=== PATIENT | male | born 1980 | race Caucasian/White ===

== ENCOUNTER → 2020-01-10 | Outpatient (CLI) | payer SELFPAY | END | disposition home or self-care (01) | LOC: LABWHC1 11:19 | PROVIDERS: ATTEND Emergency Medicine | DX: Z20.828 Contact with and (suspected) exposure to other viral communicable diseases (principal) | CPT/HCPCS: U0003; C9803 ==

== ENCOUNTER → 2020-02-11 | Outpatient (CLI) | payer SELFPAY | END | disposition home or self-care (01) | LOC: LABWHC1 16:40 | PROVIDERS: ATTEND Emergency Medicine | DX: Z20.828 Contact with and (suspected) exposure to other viral communicable diseases (principal) | CPT/HCPCS: U0003; C9803 ==

== ENCOUNTER 2021-04-21 06:13 | Day surgery (SDC) | payer BC ==
[2021-04-20 10:11] VITALS: BMI 38.0
[~2021-04-21 06:13] MED LIST: ACETAMINOPHEN TAB 500 MG TAB PO PRN; HEPARIN SODIUM,PORCINE/PF 5,000 UNIT/0.5 ML SYRINGE SQ PRN; ceFAZolin 3 GM in SODIUM CHLORIDE 0.9% 100 ML IVPB PRN
[2021-04-21 07:11] VITALS: TEMP 98
[2021-04-21] MEDS ORDERED: LACTATED RINGERS 1,000 ML IV ONE ×2 (07:20→10:53)
[2021-04-21 07:24] LABS: Glucose,Whole Blood 100 mg/dL (75-99)
[2021-04-21] MEDS ORDERED: ONDANSETRON 4 MG/2 ML VIAL IVP ONE (07:31)
[2021-04-21] MEDS ORDERED: DEXAMETHASONE SOD PHOSPHATE 4 MG/ML 1 ML VIAL IVP ONE (07:43)
[2021-04-21] MEDS ORDERED: MIDAZOLAM 2 MG/2 ML VIAL IVP ONE (07:52)
[2021-04-21] MEDS ORDERED: fentaNYL (PF) 50 MCG/ML 2 ML AMP IVP ONE (07:53)
[2021-04-21] MEDS ORDERED: fentaNYL (PF) 50 MCG/ML 2 ML AMP ONE (08:24)
[2021-04-21] MEDS ORDERED: NEOSTIGMINE 1 MG/ML 10 ML VIAL ONE (08:24)
[2021-04-21] MEDS ORDERED: ROCURONIUM 10 MG/ML (5 ML VIAL) IV ONE (08:24)
[2021-04-21] MEDS ORDERED: KETOROLAC 15 MG/ML 1 ML VIAL ONE (08:24)
[2021-04-21] MEDS ORDERED: ROPIVACAINE 5 MG/ML 30 ML VIAL ONE (08:24)
[2021-04-21] MEDS ORDERED: GLYCOPYRROLATE 0.2 MG/ML 2 ML VIAL ONE (08:24)
[2021-04-21] MEDS ORDERED: PROPOFOL 10 MG/ML 20 ML VIAL IV ONE (08:24)
[2021-04-21] MEDS ORDERED: DEXAMETHASONE SOD PHOSPHATE 10 MG/ML 1 ML VIAL ONE (08:24)
[2021-04-21] MEDS ORDERED: SODIUM CHLORIDE 0.9% (PF) 10 ML VIAL ONE (08:24)
[2021-04-21] MEDS ORDERED: SUCCINYLCHOLINE CHLORIDE 100 MG/5 ML SYR IV ONE (08:24)
[2021-04-21] MEDS ORDERED: LIDOCAINE 1% INJ 10MG/ML (20 ML MDV) ONE (08:24)
[2021-04-21] MEDS ORDERED: MIDAZOLAM 2 MG/2 ML VIAL ONE (08:24)
[2021-04-21] MEDS ORDERED: KETAMINE 10 MG/ML 20 ML VIAL ONE (08:24)
[2021-04-21] MEDS ORDERED: BUPIVACAINE (PF) 0.25% 30 ML VIAL SQ ONE (08:55)
--- NOTE | 2021-04-21 08:59 | P.ANPRN ---
Procedure Note - Anesthesia - Nerve Block Performed Bilateral Erector Spinae Single Time Out Performed: Yes Date of Procedure: 04/21/21 Procedure Start Time: 07:52 Procedure Stop Time: 07:59 Location of Patient: PreOp Indication: Requested by Surgeon Specifically requested for management of pain by DrSerenity: Mannie Soto Sedation Type: Sedate with meaningful contact maintained Preparation: Sterile Prep Position: Prone Needle Types: Pajunk Needle Gauge: 21 Ultrasound used to visualize needle placement: Yes Ultrasound used to observe medication spread: Yes Injectate: 0.5% Ropivacaine (see comment for volume) (15 ml Ropivacaine 0,5 %+14 ml 0.9% ns + 10 mg Dexamethasone per side) Blood Aspirated: No Pain Paresthesia on Injection Noted: No Resistance on Injection: Normal Image Stored and Saved: Yes Events: Uneventful and Well Tolerated
--- NOTE | 2021-04-21 10:04 | P.OP ---
Date of Procedure: 04/21/21 Preoperative Diagnosis: Incarcerated umbilical hernia Postoperative Diagnosis: Incarcerated umbilical hernia Procedure(s) Performed: Transversus abdominis plane block Laparoscopic robotic-assisted repair of incarcerated ventral hernia Partial omentectomy Anesthesia: MAC Surgeon: Mannie Soto Pathology: other (Omentum, hernia sac) Condition: stable Disposition: PACU Description of Procedure: TThe patient was placed on the operating table in the supine position. He received general anesthesia. His abdomen was prepped and draped usual fashion. Using a 5 mm optical trocar under direct visualization the peritoneal cavity was entered in the left upper quadrant. The abdomen was then insufflated. The laparoscope was placed back into the perineal cavity. Next a 8 mm robotic trocar was placed in the left lower quadrant and a 12 mm robotic trocar was placed in the left lateral position. The original 5 mm trocar was exchanged for a 8 mm robotic trocar. The patient's placed in the left side up position. And the patient was docked the robot. A transversus abdominis plane block was performed in 4 quadrants using 1% local Xylocaine. The umbilical hernia was visualized. Using hook cautery the peritoneum over the umbilical hernia was excised. The incarcerated omentum and hernia sac was dissected free and sent to pathology. The fascial opening was repaired using 0V LOC suture. Next a piece of 11 cm round ventral light ST mesh was placed into the. Cavity and secured with 2 OV lock suture. The patient was undocked the robot. The needles were retrieved. The fascia of the 12 mm trocar site was closed with 0 Ethibond suture. Skin was closed interrupted 3-0 Monocryl suture. Dermabond dressings was applied. Patient top procedure well and was sent to recovery room stable condition.
[2021-04-21] MEDS ORDERED: HYDROmorphone 0.5 MG/0.5 ML SYRINGE IVP ONE ×3 (10:21→10:40)
[2021-04-21 10:49] VITALS: RESP 16
[2021-04-21 11:38] VITALS: BP 107/64; PULSE 106
== END 2021-04-21 12:30 | disposition home or self-care (01) ==
LOC: OR 06:13
PROVIDERS: ATTEND Surgery
DX: K42.0 Umbilical hernia with obstruction, without gangrene (principal)
CPT/HCPCS: 49255; 49655; 64486; S2900; 64999; 86850; 86900; 86901; 88302